=== PATIENT | female | born 1980 | race Caucasian/White ===

== ENCOUNTER 2016-06-25 04:32 | Emergency (ER) | payer MEDICARE, OTHER ==
[2016-06-25] MEDS ORDERED: NORMAL SALINE 1,000 ML IV ONE (05:13)
[2016-06-25] MEDS ORDERED: ONDANSETRON HCL/PF 2 MG/ML VIAL IV ONE (05:13)
[2016-06-25] MEDS ORDERED: MORPHINE SULFATE 4 MG/ML SYRG IV ONE (05:13)
[2016-06-25 05:14] LABS: Hematocrit 38.2 % (37.0-47.0); Hemoglobin 12.5 gm/dL (12.5-16.0); Mean Cell Volume 94.1 fl (78-100); Mean Corpuscular Hemoglobin 30.8 pg (27-31); Mean Corpuscular Hgb Conc 32.7 g/dl (32-36); Mean Platelet Volume 9.3 fl (6.0-9.5); Neutrophil # 4.4 K/mm3 (1.3-6.0); Neutrophil % 51.6 % (42-75.0); Platelet Count 271 K/mm3 (150-450); Red Blood Count 4.06 M/mm3 (4.2-5.4); White Blood Count 8.5 K/mm3 (4.0-10.5)
--- NOTE | 2016-06-25 05:21 | ERNOTE ---
Abdominal HPI - Narrative Date of Service: 06/25/16 - General Chief Complaint: Abdominal Pain Time Seen by Provider: 06/25/16 04:41 Source: patient Exam Limitations: no limitations - Immun/Allergies/Home Medications Immunizatons: IMMUNIZATION HX Immunizations Up to Date No History of Influenza Vaccine No Hx Pneumococcal Vaccination No Allergies/Adverse Reactions: Allergies hydromorphone HCl [From Dilaudid] Allergy (Verified 06/25/16 04:45) sulfamethoxazole [From Bactrim] Allergy (Verified 06/25/16 04:45) trimethoprim [From Bactrim] Allergy (Verified 06/25/16 04:45) Home Medications: HOME MEDICATIONS Armodafinil [Nuvigil] 200 mg PO DAILY PRN 06/25/16 [Last Taken Unknown] Polyethylene Glycol 3350 [Miralax] 17 gm PO DAILY #2 bottle 06/25/16 [Last Taken Unknown] - History of Present Illness Narrative: Upper abdominal pain for the last 2 days. Pain is sharp and intermittent. Last ate at 6 pm yesterday, a few bites of [employer]. She has had recurrent abdominal pain for years, has been in hospital at [facility] and had bariums etc. Has had appendectomy and hysterectomy. She still has her gallbladder but has never been diagnosed with any biliary disease. Has taken Miralax before and use once this week as well as Milk of Magnesia once. She does not feel constipated. Her stomach changes size quite dramatically 3-4 times per day. Nothing much seems to help with this. Timing: intermittent Quality: moderate, severe, sharpness, stabbing Modifying Factors - (Improves): Present: sitting up Modifying Factors - (Worsens): Present: movement Associated Symptoms: Absent: headache, chest pain, diaphoresis, fever/chills Prior Abdominal Problems: Present: similar symptoms Prior Treatment: Absent: recently seen, currently on antibiotics Review of Systems - Review of Systems Constitutional: Absent: fever, chills EYE: Present: no symptoms reported Respiratory: Present: no symptoms reported Cardiology: Present: no symptoms reported Gastrointestinal/Abdominal: Present: abdominal pain, eating less, other - dark stools. Absent: diarrhea Genitourinary: Absent: frequency, pain, dysuria, hematuria Musculoskeletal: Present: no symptoms reported Skin: Present: no symptoms reported Neurological: Present: no symptoms reported Psych: Present: no symptoms reported - Patient's Past Medical History Patient History - Medical: Fibromyalgia, GERD, Rheumatoid Arthritis Patient History - Cardiac/Respiratory: Asthma Patient History - Cancer: No Hx of Cancer Patient History - Surgical Procedures: Appendectomy, D & C, EGD, Hysterectomy, Other - Social History Living Situations: home Smoking Status: Current every day smoker Alcohol Use: none Drug Use: none Physical Exam - Physical Exam General Appearance: Present: wd/wn, alert, mild distress Eye Exam: Normal inspection: bilateral, PERRL: bilateral, EOMI: bilateral Ears, Nose, Throat: Present: hearing grossly normal, cerumen impaction. Absent : sinus pain/drainage, pharyngeal erythema, tonsillar exudate, dry mucous membranes Respiratory: Present: no respiratory distress, normal breath sounds, no accessory muscle use, chest nontender, lungs clear. Absent: chest tenderness Cardiovascular/Chest: Present: regular rate, rhythm, no murmur Gastrointestinal/Abdominal: Present: normal bowel sounds, tenderness - mild RUQ and epigastrium. Absent: guarding, rebound, mass Extremity Exam: Present: normal inspection Neurological Exam: Present: alert, oriented, normal mood/affect Skin Exam: Present: normal color ED Progress - Results and Orders Patient's Lab Results:: I have reviewed the patient's lab results. - Vital Signs Patient's Vital Signs:: I have reviewed the patient's vital signs. Vital Signs: Vital Signs 06/25/16 04:38 Temperature 36.0 C L Pulse Rate 85 Respiratory 20 Rate Blood Pressure 125/86 O2 Sat by Pulse 99 Oximetry - X-Ray X-Ray #1 X-Ray: abdomen Interpretation: Reviewed by me X-ray Comments: large stool load, o/w normal. - Progress/Reassessment Chief Complaint: Abdominal Pain Plan - Plan Plan: Home, Citroma today, repeat if needed, Take Miralax daily. Titrate to need. Departure - Departure Clinical Impression: Epigastric pain, Constipation Disposition: Home self-care Condition: Good Instructions: Constipation, Adult, [id number], Abdominal Pain, Adult, Easy-to -Read Additional Instructions: Drink entire bottle of Citroma today. This may be repeated if needed. Take Miralax daily. Titrate to symptom relief. Referrals: Carley Darling FNP [Primary Care Provider] - Prescriptions: Polyethylene Glycol 3350 [Miralax] 17 gm PO DAILY #2 bottle
[2016-06-25 05:27] LABS: Albumin * 3.8 gm/dl (3.4-5.0); Anion Gap 14.3 mmol/L (6.8-13.8); BUN/Creatinine Ratio 12.5 (9.0-21.6); Calcium * 9.4 mg/dL (7.9-10.9); Carbon Dioxide 25.4 mmol/L (24-32.6); Potassium 3.7 mmol/L (3.4-4.6); Total Protein 6.9 gm/dL (6.2-8.2)
[2016-06-25 05:28] LABS: Bilirubin, Total 0.2 mg/dL (0.0-1.1); Ca. Corrected For Albumin 9.2 mg/dL (8.4-10.2)
[2016-06-25] MEDS ORDERED: MORPHINE SULFATE 4 MG/ML SYRG ONE ×2 (05:33)
[2016-06-25] MEDS ORDERED: ONDANSETRON HCL/PF 2 MG/ML VIAL ONE (05:34)
[2016-06-25 06:28] LABS: Urine Bilirubin Negative (NEGATIVE); Urine Blood Negative /ul (NEGATIVE); Urine Ketone Negative (NEGATIVE); Urine Nitrite Negative (NEGATIVE); Urine Protein Negative (NEGATIVE); Urine Specific Gravity 1.015 SP.GR. (1.005-1.010); Urine Urobilinogen Normal (NORMAL); Urine pH 6.5 pH (5.0-7.0)
[2016-06-25 06:40] LABS: Urine Appearance Clear; Urine Bacteria 3+; Urine Color Yellow; Urine RBC TRACE /hpf (0-5); Urine WBC None Seen /hpf (0-5)
[2016-06-25] MEDS ORDERED: MAGNESIUM CITRATE 300 ML BTL PO ONE (06:52)
[2016-06-25] MEDS ORDERED: MAGNESIUM CITRATE 300 ML BTL ONE (06:54)
[2016-06-25 07:14] VITALS: BP 131/79
== END 2016-06-25 07:12 | disposition home or self-care (01) ==
LOC: ER 04:32
DX: K59.00 Constipation, unspecified (principal); F17.210 Nicotine dependence, cigarettes, uncomplicated; Z90.710 Acquired absence of both cervix and uterus